=== PATIENT | female | born 1945 | race Caucasian/White ===

== ENCOUNTER 2020-07-18 06:56 | Day surgery (SDC) | payer MEDICARE, BC ==
[~2020-07-18] VITALS: Ht 167.6 cm; Wt 120.7 kg
[~2020-07-18 06:56] MED LIST: ACCUPRIL5 MG PO; AMARYL PO; FORTAMET500 MG PO; GLUCOTROL XL5 MG/TAB PO; LANTUS100 U/ML SC; LEVEMIR100 U/ML SQ; MELOXICAM; PEPCID 20MG TAB20 MG PO; VICTOZA6 MG/ML SC
[2020-07-18 07:51] VITALS: BP 147/79; PULSE 89; TEMP 99.1
--- NOTE | 2020-07-18 08:11 | NUR ---
Initial visit; Patient thanked [employer] for looking in on her and stated that her had prayed with her already and she hoped that Dr. Connor would pray with her as he did last time. [employer] wished her well and offered God's blessings.
[2020-07-18 09:05] VITALS: BP 142/78; PULSE 83; TEMP 98.4
[2020-07-18 09:20] VITALS: BP 143/63; PULSE 77
[2020-07-18 09:35] VITALS: BP 145/65; PULSE 80
--- NOTE | 2020-07-18 10:12 | NUR ---
1437 PATIENT DISCHARGED TO POV WITH SPOUSE VIA WHEELCHAIR. PATIENT DRANK CRANBERRY JUICE AND ATE APPLESAUCE. ROLERATED WELL. IV D/C'D WITH SITE WRAPPED WITH COBAN OVER COTTONBALL. PATIENT DENIED COMPLAINT.
== END 2020-07-18 10:58 | disposition home or self-care (01) ==
LOC: SDCO
DX: Z12.11 Encounter for screening for malignant neoplasm of colon (principal); D12.4 Benign neoplasm of descending colon; K63.5 Polyp of colon; K63.89 Other specified diseases of intestine; K57.30 Diverticulosis of large intestine without perforation or abscess without bleeding; I48.91 Unspecified atrial fibrillation; I10 Essential (primary) hypertension; E11.9 Type 2 diabetes mellitus without complications; J45.909 Unspecified asthma, uncomplicated; E78.5 Hyperlipidemia, unspecified; K21.9 Gastro-esophageal reflux disease without esophagitis; Z96.41 Presence of insulin pump (external) (internal); Z20.828 Contact with and (suspected) exposure to other viral communicable diseases; Z90.49 Acquired absence of other specified parts of digestive tract; Z96.653 Presence of artificial knee joint, bilateral; Z90.710 Acquired absence of both cervix and uterus; Z88.5 Allergy status to narcotic agent; Z88.8 Allergy status to other drugs, medicaments and biological substances; Z79.899 Other long term (current) drug therapy; Z95.0 Presence of cardiac pacemaker; Z79.82 Long term (current) use of aspirin
CPT/HCPCS: J2704; J3010; J7120

== ENCOUNTER → 2020-07-26 | Outpatient (CLI) | payer MEDICARE, BC | LOC: COL.RAD 09:59 | DX: Z01.812 Encounter for preprocedural laboratory examination (principal); K51.412 Inflammatory polyps of colon with intestinal obstruction; K57.30 Diverticulosis of large intestine without perforation or abscess without bleeding | CPT/HCPCS: Q9967 ==

== ENCOUNTER 2020-08-10 11:19 | Inpatient (IN) | payer MEDICARE, BC ==
[~2020-08-10] VITALS: Ht 165.1 cm; Wt 126.5 kg
[2020-08-23] VITALS (9 sets, daily range): BP systolic 98–152; BP diastolic 41–80; PULSE 81–96; TEMP 97.5–97.8
[2020-08-23] MEDS ORDERED: COREG 3.123.125 MG/T PO (12:24)
[2020-08-23] MEDS ORDERED: LASIX 80MG TABL80 MG PO (12:25)
[2020-08-23] MEDS ORDERED: LASIX 40MG TABL40 MG PO (12:28)
[2020-08-23] MEDS ORDERED: TUMS500 MG PO (12:29)
[2020-08-23] MEDS ORDERED: NOVLOG (12:31)
[2020-08-23 17:22] LABS: BASO # 0.1 (0.0-0.2); BASO % 0.4 % (0.0-2.0); EOS # 0.2 (0.0-0.7); GRAN # 14.8 (1.4-6.5); GRAN % 79.8 % (42.2-75.2); HEMATOCRIT 37.9 % (37.0-47.0); HEMOGLOBIN 11.7 g/dl (12.5-16.0); LYMPH # 2.8 (1.2-3.4); LYMPH % 14.9 % (20.0-51.0); MEAN CELL VOLUME 88 fl (80.0-100.0); MEAN CORPUSCULAR HEMOGLOBIN 27 pg (27.0-31.0); MEAN CORPUSCULAR HGB CONC 31 g/dl (33.0-37.0); MEAN PLATELET VOLUME 10.3 fl (7.4-10.4); MONO # 0.6 (0.1-0.6); MONO % 3.3 % (1.7-9.3); PLATELET COUNT 279 K/mm3 (130-400); RED BLOOD COUNT 4.29 M/mm3 (4.10-5.30); REDCELL DISTRIBUTION WIDTH-CV 15.5 % (11.5-14.5)
--- NOTE | 2020-08-23 18:13 | NUR ---
Patient up from surgery. Patient is very drowsy and disoriented. Started on post op vitals. Vitals are stable on 3 L of oxygen via nasal cannula. Patient has 8 lap sites on her abdomen and a marquis catheter. Patient reports pain is tolerable. Will continue to monitor.
--- NOTE | 2020-08-23 20:45 | NUR ---
Pt. laying in bed at this time. Pt. is A&OX3, assessment complete. IV to lt. hand patent, IV fluids infusing per orders. Abd. lap sites x8, 7 bandaids and 1 with gauze. All sites CDI. Mariano catheter to DD, clear yellow urine noted. Pt. reports pain at a 4 on pain scale, gave scheduled Tylenol. Pt. denies further needs, call light within reach.
[2020-08-24] VITALS (7 sets, daily range): BP systolic 103–133; BP diastolic 33–64; PULSE 67–91; TEMP 97.6–99
--- NOTE | 2020-08-24 08:00 | NUR ---
PATIENT IS A&O. VSS. PATIENT C/O MILD DISCOMFORT IN ABD AT REST. PATIENT IS OBESE WITH DISTEND ABD POST OP. NOTED LAP SITES X8 WITH BANDAIDS. BOWL SOUNDS PRESENT X4 QUADS. NO C/O N/V. PATIENT TOLERATING FULL LIQUID DIET. AM BS WAS 255, PATIENT HAS INSULIN PUMP INPLACE AND CONTROLS IT HERSELF. PATIENT ASSISTED UP INTO BEDSIDE CHAIR WITH 1 ASSIST. PATIENT TOLERATED ACTIVITY WELL. STUDENT NURSE DC'D BROWN PER ORDERS. NOTED 340CC OF CLEAR YELLOW URINE. HEAD TO TOE ASSESSMENT COMPLETE, SEE STUDENT NOTES. NO OTHER NEEDS. CALL LIGHT IN REACH.
--- NOTE | 2020-08-24 09:13 | NUR ---
NKECHI met with the patient to discuss discharge plan. The patient lives outside of [place] with her , Cassius (ph#[phone]). She reports independence with ADLs and has a cane and walker available, if needed. The patient's primary care provider is DAVID Pascual in [place] and she receives her medications at [facility]. She reports no difficulties obtaining her meds. The patient does not have a DPOA-HC and she was not interested in completing a DPOA-HC at this time. NKECHI contacted the patient's , Cassius, and reviewed d/c plan. Cassius confirmed the above information and had no concerns about the patient returning back home with him. No additional needs at this time.
--- NOTE | 2020-08-24 15:40 | NUR ---
PATIENT'S WAS CONCERNED HIS WIFES DEXCOM TRANSMITTER WAS MISSING. THE PATIENT'S INSULIN PUMP IS INPLACE BUT REPORTED IT COULDN'T COMMUNICATE WITH THE TRANSMITTER. NURSING TRACED THE PATIENT'S STEPS FROM THE MOMENT SHE ENTERED THE FACILITY. UNIT SUPERVISORS AND DIRECTOR NOTIFIED. PREVIOUS CARE STAFF NOTIFIED. DEXCOM WAS MOVED IN OR. NURSING WENT TO CHECK BEDDING TO SEE IF THE PREVIOUSLY REMOVED DEXCOM CAME OFF. NURSING FOUND THE DEXCOM WADDED UP INSIDE THE TEGGADERM AND PATIENT WAS LAYING ON IT. PATIENT AND RELIEVED. IS DOING A COMPLETE NEW INSULIN PUMP AND DEXCOM SET UP AT [facility].
--- NOTE | 2020-08-24 20:00 | NUR ---
Report received, assumed care for night stocker. Assessment complete. A&Ox3. Denies pain/nausea/shortness of breath. VS stable. Has been up out of bed. +flatus. Laps x8-bandaids/CDI. Laps x1 with medipore tape x2-CDI. Noted to have a small red area to left buttock-provided barrier cream. Tolerating diet. Voding without difficulty. Plan of care discussed for pain/nausea control/up out of bed. Verbalizes understanding/denies questions concerns. Call light in reach. Will monitor.
--- NOTE | 2020-08-24 22:00 | NUR ---
Up to bathroom at this time. Voided without difficulty. Medium soft formed BM. Will monitor.
[2020-08-25 03:59] VITALS: BP 113/46; PULSE 70; TEMP 99.1
[2020-08-25 07:16] LABS: BASO % 0.3 % (0.0-2.0); EOS # 0.5 (0.0-0.7); EOS % 4.3 % (0-4.0); GRAN # 8.3 (1.4-6.5); GRAN % 71.2 % (42.2-75.2); LYMPH % 16.9 % (20.0-51.0); MEAN CELL VOLUME 88 fl (80.0-100.0); MEAN CORPUSCULAR HGB CONC 31 g/dl (33.0-37.0); MONO # 0.8 (0.1-0.6); MONO % 6.9 % (1.7-9.3); PLATELET COUNT 224 K/mm3 (130-400); RED BLOOD COUNT 3.63 M/mm3 (4.10-5.30); REDCELL DISTRIBUTION WIDTH-CV 15.6 % (11.5-14.5)
[2020-08-25 07:25] LABS: HEMATOCRIT 31.8 % (37.0-47.0); HEMOGLOBIN 9.9 g/dl (12.5-16.0); MEAN CORPUSCULAR HEMOGLOBIN 27 pg (27.0-31.0)
[2020-08-25 07:33] LABS: CALCIUM 8.2 mg/dL (8.4-10.2); CREATININE, serum 1.19 (0.52-1.25); POTASSIUM 3.9 mmol/L (3.4-5.0)
[2020-08-25 08:00] VITALS: BP 119/55; PULSE 76; TEMP 97.5
--- NOTE | 2020-08-25 10:15 | NUR ---
Patient walked in the singh reporting her pain was tolerable. Patient was short of breath when walking. Patient now resting in the chair with her legs elevated.
[2020-08-25] MEDS ORDERED: ULTRAM 50MG TAB50 MG PO (11:33)
[2020-08-25 12:05] VITALS: BP 110/67; PULSE 89; TEMP 97.4
--- NOTE | 2020-08-25 16:00 | NUR ---
Patient walked the halls with standby assist. tolerated well but was short of breath. Patient now resting in chair.
[2020-08-25 16:28] VITALS: BP 151/62; PULSE 74; TEMP 98
[2020-08-25 19:56] VITALS: BP 119/38; PULSE 72; TEMP 98.5
--- NOTE | 2020-08-25 20:30 | NUR ---
Report received, assumed care for overnight houseperson. Assessment complete. A&Ox3. VS stable. Denies nausea/shortness of breath. Rating pain 6/10 on pain scale to abdomen-described as constant ache-tramadol given per order. Has ambulated in the hallways. Lap sites x9-edges well approximated-no drainage noted. Tolerating diet. Denies questions/concerns. Call light in reach. Will monitor.
--- NOTE | 2020-08-25 23:00 | NUR ---
Provider notified of patients request for something to help her sleep. New orders received for Melatonin 6mg. Given now. Will monitor.
[2020-08-26 00:07] VITALS: BP 120/47; PULSE 68; TEMP 98.5
[2020-08-26 03:30] VITALS: BP 118/54; PULSE 70; TEMP 98.4
--- NOTE | 2020-08-26 05:30 | NUR ---
Rested well later this shift after receiving melatonin. +flatus/+BM. Voiding without difficulty. Tolerating diet. Ambulating in halls. Pain controlled after one dose of tramadol early in shift. Denies needs. Call light in reach. WIll monitor.
[2020-08-26 08:21] VITALS: BP 118/54; PULSE 72; TEMP 98
--- NOTE | 2020-08-26 10:40 | NUR ---
Patient is discharging home. She has been up in the room. Minimal complaints of pain, no complaints of nausea. She has been up voiding without issues. Passing flatus, had a BM yesterday. No bowel movement today. Discharge instructions discussed with patient. All belongings packed up and sent with patient. Copies of discharge instructions given to patient. Prescription for tramadol given to patient to get filled at pharmacy. Patient is aware she needs to call friday for a follow up appointment. Patient walked out via wheel chair by Desi OCHOA.
== END 2020-08-26 10:40 | disposition home or self-care (01) | DRG 331 ==
LOC: INPTSU 08-23 10:02 → SURG 08-23 11:00 → INPTSU 08-23 17:46 → SURG 08-23 17:46
PROVIDERS: ADMIT Surgery
PROC: 0DNU4ZZ Release Omentum, Percutaneous Endoscopic Approach (ICD-10-PCS; 2020-08-23)
PROC: 8E0W4CZ Robotic Assisted Procedure of Trunk Region, Percutaneous Endoscopic Approach (ICD-10-PCS; 2020-08-23)
PROC: 0DBL4ZZ Excision of Transverse Colon, Percutaneous Endoscopic Approach (ICD-10-PCS; principal; 2020-08-23 12:15)
DX: K63.9 Disease of intestine, unspecified (principal)
CPT/HCPCS: A4314; A9284; J0690; J1815; J1940; J2250; J2405; J2550; J2704; J2795; J3010